=== PATIENT | female | born 1960 | race African-American/Black ===

== ENCOUNTER 2018-07-29 06:57 | Day surgery (SDC) | payer OTHER ==
[2018-07-28 11:56] VITALS: BMI 47.7
[2018-07-29] MEDS ORDERED: Lidocaine 1% PF 5 ML VIAL ONE (13:40)
[2018-07-29] MEDS ORDERED: PROPOFOL 200 MG/20 ML VIAL ONE (13:40)
--- NOTE | 2018-07-29 14:03 | OP ---
DATE OF PROCEDURE: 07/29/2018 PROCEDURE: Colonoscopy. PREPROCEDURE DIAGNOSIS: Colorectal cancer screening. POSTPROCEDURE DIAGNOSIS: Perianal skin tag, otherwise normal colonoscopy. RECOMMENDATIONS: 1. Repeat colonoscopy in 10 years. 2. I instructed her that the skin tag ever begin to bother her, we could send her to a surgeon to have it removed, but otherwise I would leave it alone, thus becomes a hygiene or pain issue. ANESTHESIA: TIVA. DESCRIPTION OF PROCEDURE: After the patient was informed of the risks, benefits, possible complications of endoscopy including perforation, reaction to medication, and aspiration, informed consent was obtained. The patient was brought to Endoscopy Suite, where she was sedated in gradual fashion. Once she was comfortable, rectal exam was performed, which revealed perianal skin tag. The endoscope was advanced through the anal canal through the colon and the cecum was identified by the ileocecal valve and appendiceal orifice. The prep was very good. The scope was then slowly removed with good visualization of the mucosa. There was no mass, lesions, or AV malformations. Retroflexion reviewed the skin tag just inside the anal canal. This appears benign. It was not removed because it will be very painful to do that with cautery. The scope was then returned in forward position. The colon was desufflated and the scope was removed. Job ID: [id number]
== END 2018-07-29 11:37 | disposition home or self-care (01) ==
LOC: SDC 06:57
PROVIDERS: ATTEND Internal Medicine Gastroenterology
PROC: 0DJD8ZZ Inspection of Lower Intestinal Tract, Via Natural or Artificial Opening Endoscopic (ICD-10-PCS; principal; 2018-07-29)
DX: Z12.11 Encounter for screening for malignant neoplasm of colon (principal); K64.4 Residual hemorrhoidal skin tags; I10 Essential (primary) hypertension; E11.9 Type 2 diabetes mellitus without complications; E78.00 Pure hypercholesterolemia, unspecified; Z79.82 Long term (current) use of aspirin; Z79.84 Long term (current) use of oral hypoglycemic drugs; Z79.899 Other long term (current) drug therapy

== ENCOUNTER 2019-11-03 14:57 | Outpatient (CLI) | payer OTHER ==
--- NOTE | 2019-11-03 15:40 | ULT ---
VENOUS DOPPLER ULTRASOUND OF THE RIGHT LOWER EXTREMITY: 11/03/19 HISTORY: Right lower extremity pain. History of DVT one year ago. TECHNIQUE: Burger scale ultrasound with color flow and spectral Doppler imaging of the deep venous system of the r ight lower extremity is performed. FINDINGS: There is good flow, compression, and augmentation noted in the right common femoral, femoral, deep fe moral, popliteal, posterior tibial and greater saphenous veins. IMPRESSION: No evidence of DVT in the right lower extremity. POS: [facility]
== END 2019-11-03 14:58 | disposition home or self-care (01) ==
LOC: BICULT 14:57
PROVIDERS: ATTEND Family Medicine
DX: M79.604 Pain in right leg (principal)

== ENCOUNTER 2021-02-06 15:00 | Outpatient (CLI) | payer OTHER | END 2021-02-06 15:01 | disposition home or self-care (01) | LOC: ULT 15:00 | PROVIDERS: ATTEND Nurse Practitioner Family | DX: M79.89 Other specified soft tissue disorders (principal); Z86.718 Personal history of other venous thrombosis and embolism ==

== ENCOUNTER 2022-09-25 09:39 | Emergency (ER) | payer OTHER, SELFPAY ==
[2022-09-25 11:41] LABS: #Basophils 0.1 thou/uL (0.0-0.2); #Eosinphils 0.2 thou/uL (0.0-0.7); #Lymphocytes 4.4 thou/uL (1.20-3.40); #Monocytes 0.5 thou/uL (0.11-0.59); #Neutrophils 4.8 thou/uL (1.40-6.50); %Basophils 0.9 % (0.0-1.0); %Eosinophils 2.4 % (0.0-10.0); %Lymphocytes 44.1 % (21.0-51.0); %Monocytes 4.6 % (0.0-10.0); %Neutrophils 47.9 % (42.0-75.0); Hemoglobin 11.2 g/dL (12.0-16.0); Mean Corpuscular HGB CONC 31.4 g/dL (32.0-36.0); Mean Corpuscular Hemoglobin 26.9 pg (27.0-31.0); Mean Corpuscular Volume 85.7 fl (78.0-98.0); Mean Platelet Volume 8.3 fL (7.4-10.4); Platelet Count 300 10x3/uL (130-400); RBC Distribution Width 14.4 % (11.5-14.5); Red Blood Cell (RBC) Count 4.15 mill/uL (4.20-5.40); White Blood Cell (WBC) Count 10.1 10x3/uL (4.8-10.8)
[2022-09-25 11:47] LABS: INR-International Normal Ratio 1.1; Prothrombin Time 15.1 sec (12.0-14.7)
[2022-09-25 12:07] LABS: ALT (SGPT) 26 U/L (8-55); AST (SGOT) 29 U/L (5-34); Albumin 3.9 g/dL (3.4-4.8); Alkaline Phosphatase 89 U/L (40-110); Anion Gap 15 mmol/L (10-20); BUN (Urea Nitrogen) 34 mg/dL (9.8-20.1); Bilirubin, Total 0.2 mg/dL (0.2-1.2); Calc. Creatinine Clearance 0 mL/min (70-130); Calcium 9.7 mg/dL (7.8-10.44); Carbon Dioxide 20 mmol/L (23-31); Chloride 112 mmol/L (98-107); Estimated GFR 48; Globulin 4.1 g/dL (2.4-3.5); Glucose 72 mg/dL (80-115); Potassium 4.8 mmol/L (3.5-5.1); Sodium 142 mmol/L (136-145)
== END 2022-09-25 13:32 | disposition home or self-care (01) ==
LOC: ERS 09:39
DX: R60.0 Localized edema (principal); M17.11 Unilateral primary osteoarthritis, right knee; I10 Essential (primary) hypertension; E78.5 Hyperlipidemia, unspecified; E11.9 Type 2 diabetes mellitus without complications
CPT/HCPCS: 36415; 80053; 83880; 85025; 85610; 85730

== ENCOUNTER 2025-01-16 22:47 | Emergency (ER) | payer BC ==
[2025-01-16] MEDS ORDERED: Ketorolac Tromethamine 30 MG (1 mL) VIAL ONE (23:51)
== END 2025-01-16 23:57 | disposition home or self-care (01) ==
LOC: ERS 22:47
DX: M25.511 Pain in right shoulder (principal); I10 Essential (primary) hypertension; E11.9 Type 2 diabetes mellitus without complications; V48.0XXA Car driver injured in noncollision transport accident in nontraffic accident, initial encounter
CPT/HCPCS: 96372; 99284; J1885